=== PATIENT | male | born 1970 | race Caucasian/White ===

== ENCOUNTER 2016-03-06 10:23 | Emergency (ER) | payer OTHER ==
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
--- NOTE | 2016-03-06 13:21 | ED ORDER SUMMARY ---
..... Patient: NATHAN CALLOWAY OrderSheet [facility] VisitID: [id number] [address] [place] [address] 45y, M Registration Date/Time: 03/06/2016 ORDER SHEET Weight: 94.3 kg (stated) Allergies: Adhesive Tape GENERAL ORDERS: Cervical Spine 2 or 3V Urgent (11:58 03/06/2016 Vernell JACKSON) (Ack 12:09 NHouse ER Tech1) (12:31 NHouse ER Tech1) Soft Collar (13:20 03/06/2016 Vernell JACKSON) MEDICATION ORDERS: IV FLUIDS: ORDER SHEET NOTES: [Electronically signed by Judith Tan R.N. (13:37 03/06/2016)] [Electronically signed by Toño Peraza MD (20:37 03/07/2016)] [Electronically locked/signed by Judith Tan R.N. (13:37 03/06/2016)]
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
--- NOTE | 2016-03-06 13:21 | ED ORDER SUMMARY ---
..... Patient: NATHAN CALLOWAY OrderSheet [facility] VisitID: [id number] [address] [place] [address] 45y, M Registration Date/Time: 03/06/2016 ORDER SHEET Weight: 94.3 kg (stated) Allergies: Adhesive Tape GENERAL ORDERS: Cervical Spine 2 or 3V Urgent (11:58 03/06/2016 Vernell JACKSON) (Ack 12:09 NHouse ER Tech1) (12:31 NHouse ER Tech1) Soft Collar (13:20 03/06/2016 Vernell JACKSON) MEDICATION ORDERS: IV FLUIDS: ORDER SHEET NOTES: [Electronically signed by Judith Tan R.N. (13:37 03/06/2016)] [Electronically signed by Toño Peraza MD (20:37 03/07/2016)] [Electronically locked/signed by Judith Tan R.N. (13:37 03/06/2016)]
--- NOTE | 2016-03-07 20:37 | ED MAR SUMMARY ---
..... Medication Administration Record [facility] [address], [place] [id number] Patient: NATHAN CALLOWAY Visit ID: [id number] 45y, M Weight: 94.3 kg Height/Length: 72 in BMI: 28.2 ALLERGIES: Adhesive Tape
--- NOTE | 2016-03-07 20:37 | ED MED RECONCILIATION SUMMARY ---
Patient: NATHAN CALLOWAY Medication Reconciliation Report [facility] VisitID: [id number] [address] [place] [address] 45y, M Registration Date/Time: 03/06/2016 Weight: 94.3 kg Height/Length: 72 in. BMI: 28.2 ALLERGIES: Adhesive Tape The patient's Home Medications are listed below: NONE. The source(s) of the original Home Medication information: Not obtained. The following Medications were given to the patient in the Emergency Department: None. The following Medications were prescribed to the patient: Hydrocodone/APAP 5mg/325mg: take 1 to 2 orally every 6 hours as needed for pain. Dispense fifteen (15). No refills. -- Toño Peraza MD Ibuprofen 600mg tablets: take 1 tablet orally every 8 hours as needed for pain. Dispense thirty (30). No refills. -- Toño Peraza MD Soma 350 mg: Take 1 orally every 6 hours as needed for muscle spasm. Dispense twenty (20). No refills. Substitution is permissible. -- Toño Peraza MD
--- NOTE | 2016-03-07 20:37 | ED DISCHARGE INSTRUCTIONS ---
Patient: NATHAN CALLOWAY General Instructions [facility] VisitID: [id number] [place] [address] 45y, M Registration Date/Time: 03/06/2016 Acute left lower cervical radiculopathy with sensory loss. No motor deficit. Acute cervical strain. INSTRUCTIONS Wear soft neck collar until better. Apply moist heat for 15-20 minutes three times a day for three days until better. Limit use of your left hand until better. Prescription Medications: Hydrocodone/APAP 5mg/325mg: take 1 to 2 orally every 6 hours as needed for pain. Dispense fifteen (15). No refills. Ibuprofen 600mg tablets: take 1 tablet orally every 8 hours as needed for pain. Dispense thirty (30). No refills. Soma 350 mg: Take 1 orally every 6 hours as needed for muscle spasm. Dispense twenty (20). No refills. Substitution is permissible. Follow-up: Follow up with your doctor Sunday in four days if not better. Understanding of the discharge instructions verbalized by patient. ADDITIONAL INFORMATION Pinched Nerve, Neck [Cervical Radiculopathy] A pinched nerve in the neck (also called "Cervical Radiculopathy") is caused by irritation or pressure on the nerve that goes from the spinal cord to the arm. This may be caused by a bulging spinal disk (a "spinal disk" is the cushion between each spinal bone) or narrowing of the spinal joint due to arthritis. This can cause numbness, tingling, deep aching or electrical shooting pain from the side of the neck all the way down to the fingers on one side. A pinched nerve may begin after a sudden turning/bending force (such as in a car accident) or after a simple awkward movement. In either case, muscle spasm is commonly present and contributes to the pain. Home Care: 1) Rest and relax the muscles. Use a comfortable pillow that supports the head and keeps the spine in a neutral position. The position of the head should not be tilted forward or backward. A rolled up towel may help for a custom fit. 2) Some persons find relief with heat (hot shower, hot bath or heating pad) and massage, while others prefer cold packs (crushed or cubed ice in a plastic bag, wrapped in a towel) . Try both and use the method that feels best for 20 minutes several times a day. 3) You may use acetaminophen (Tylenol) or ibuprofen (Motrin, Advil) to control pain, unless another medicine was prescribed. [ NOTE : If you have chronic liver or kidney disease or ever had a stomach ulcer or GI bleeding, talk with your doctor before using these medicines.] Follow Up with your physician or this facility if your symptoms do not show signs of improvement after one week. Further testing may be needed. [NOTE: If x-rays were taken, they will be reviewed by a radiologist. You will be notified of any new findings that may affect your care.] Get Prompt Medical Attention if any of the following occur: -- Pain becomes worse and not controlled by prescribed pain medicine -- Weakness in the arm -- Increasing numbness in the arm -- Trouble breathing or swallowing Neck Sprain Or Strain A sudden force that causes turning or bending of the neck (such as in a car accident) can stretch or tear muscles (strain) and ligaments (sprain) and cause neck pain. Sometimes neck pain occurs after a simple awkward movement. In either case, muscle spasm is commonly present and contributes to the pain. Unless you had a forceful physical injury (for example, a car accident or fall), X-rays are usually not ordered for the initial evaluation of neck pain. If pain continues and dose not respond to medical treatment, X-rays and other tests may be performed at a later time. Home care The following guidelines will help you care for your injury at home: You may feel more soreness and spasm the first few days after the injury. Reduce your activity level until symptoms begin to improve. When lying down, use a comfortable pillow that supports the head and keeps the spine in a neutral position. The position of the head should not be tilted forward or backward. Use ice packs (ice in a plastic bag, wrapped in a towel) to treat acute pain. Apply for 20 minutes every 24 hours during the first two days. Then, begin local heat (hot shower, hot bath or heating pad) andmassageto reduce muscle spasm. Some patients feel best alternating hot and cold treatments, or just staying with one method only. Do what feels the best to you and gives the most relief. You may use acetaminophen or ibuprofen to control pain, unless another pain medicine was prescribed.If you have chronic liver or kidney disease or ever had a stomach ulcer or GI bleeding, talk with your doctor before using these medicines. Follow-up care Follow up with your physician or this facility if your symptoms do not show signs of improvement. Physical therapy may be needed. If you had X-rays today, they didnt show any broken bones, breaks, or fractures. Sometimes fractures dont show up on the first X-ray. Bruises and sprains can sometimes hurt as much as a fracture. These injuries can take time to heal completely. If your symptoms dont improve or they get worse, talk with your doctor. You may need a repeat X-ray. When to seek medical care Get prompt medical attention if any of the following occur: Pain becomes worse or spreads into your arms Weakness or numbness in one or both arms Cervical Collar A cervical collar is used to provide support and limit movement of the neck. It is usually provided after a moderate to severe neck sprain. Home Use: Unless told otherwise, the collar should be worn whenever you are out of bed. It may be taken off for sleep and for bathing. When lying down, support your neck with a small pillow or rolled up towel under the neck. When adjusting your pillows, try to keep the neck in a neutral position (in line with the upper back). Pillows should not be so thick as to bend your head forward. Do not wear the collar longer than advised by your doctor. This may lead to further stiffness from lack of neck movement. Get Prompt Medical Attention if any of the following occur: Increasing pain in the neck Weakness or numbness in the arms or hands Pain spreading from the neck into the shoulder or arms Fever of 100.4F(38C) or higher, or as directed by your healthcare provider You have been given the following additional information: Radiculopathy, Cervical Neck Sprain/Strain Cervical Collar Limit use of your left hand until better. (Electronically signed by Toño Peraza MD 03/07/2016 20:37)
--- NOTE | 2016-03-07 20:37 | ED MED RECONCILIATION SUMMARY ---
Patient: NATHAN CALLOWAY Medication Reconciliation Report [facility] VisitID: [id number] [address] [place] [address] 45y, M Registration Date/Time: 03/06/2016 Weight: 94.3 kg Height/Length: 72 in. BMI: 28.2 ALLERGIES: Adhesive Tape The patient's Home Medications are listed below: NONE. The source(s) of the original Home Medication information: Not obtained. The following Medications were given to the patient in the Emergency Department: None. The following Medications were prescribed to the patient: Hydrocodone/APAP 5mg/325mg: take 1 to 2 orally every 6 hours as needed for pain. Dispense fifteen (15). No refills. -- Toño Peraza MD Ibuprofen 600mg tablets: take 1 tablet orally every 8 hours as needed for pain. Dispense thirty (30). No refills. -- Toño Peraza MD Soma 350 mg: Take 1 orally every 6 hours as needed for muscle spasm. Dispense twenty (20). No refills. Substitution is permissible. -- Toño Peraza MD
--- NOTE | 2016-03-07 20:37 | ED MAR SUMMARY ---
..... Medication Administration Record [facility] [address] [place], [place] [id number] Patient: NATHAN CALLOWAY Visit ID: [id number] 45y, M Weight: 94.3 kg Height/Length: 72 in BMI: 28.2 ALLERGIES: Adhesive Tape
== END 2016-03-06 13:30 | disposition home or self-care (01) ==
LOC: ED SRH 10:23
DX: S16.1XXA Strain of muscle, fascia and tendon at neck level, initial encounter (principal); Y04.8XXA Assault by other bodily force, initial encounter; Y93.9 Activity, unspecified; Y92.69 Other specified industrial and construction area as the place of occurrence of the external cause; Y99.0 Civilian activity done for income or pay; M54.12 Radiculopathy, cervical region; F17.210 Nicotine dependence, cigarettes, uncomplicated; Z88.8 Allergy status to other drugs, medicaments and biological substances